=== PATIENT | female | born 1980 | race Caucasian/White ===

== ENCOUNTER 2016-06-26 20:52 | Emergency (ER) | payer MEDICAID, OTHER ==
[~2016-06-26] VITALS: Ht 170.2 cm; Wt 72.6 kg
--- NOTE | 2016-06-26 20:54 | NUR ---
Patient being evaluated by physician.
[2016-06-26 20:58] VITALS: BP 119/62
[2016-06-26] MEDS ORDERED: ONDANSETRON 4 MG ODT PO ONE (21:00)
[2016-06-26] MEDS ORDERED: DICYCLOMINE HCL LIQUID 20 MG, ALUMINUM HYD/MAG/SIMETHICONE 30 ML, LIDOCAINE VISCOUS 2% ... PO ONE ×3 (21:00)
--- NOTE | 2016-06-26 21:00 | NUR ---
BIBA BLS TO ER OF2
[2016-06-26] MEDS ORDERED: LORazepam 1 MG TAB PO ONE (21:05)
--- NOTE | 2016-06-26 21:19 | NUR ---
MOVED TO ER BED 5
[2016-06-26 21:46] LABS: HEMATOCRIT 30.2 % (36-48); HEMOGLOBIN 8.7 g/dL (12.0-16.0); MEAN CORPUSCULAR HEMOGLOBIN 16 pg (27-31); MEAN CORPUSCULAR HGB CONC 29 g/dL (33-37); MEAN CORPUSCULAR VOLUME 57 fL (80-94); PLATELET COUNT (AUTO) 297 K/uL (140-450); RED BLOOD CELL COUNT(AUTO) 5.29 MIL/uL (4.20-5.40); RED CELL DISTRIBUTION WIDTH 18.7 % (11.6-13.7); WHITE BLOOD COUNT (AUTO) 10.1 K/uL (4.8-10.8)
[2016-06-26 22:02] LABS: ANION GAP 18.1 (8-16); CALCIUM 9.4 mg/dL (8.5-10.1); CARBON DIOXIDE 23.3 mmol/L (21-32); CREATININE 0.9 mg/dL (0.6-1.3); POTASSIUM 3.4 mmol/L (3.5-5.1)
[2016-06-26 22:03] LABS: LYMPHOCYTES % (MANUAL) 13 % (20-46); MONOCYTES % (MANUAL) 5 % (5-12); NEUTROPHILS % (MANUAL) 82 (43-65); PLATELET ESTIMATE ADEQUATE
[2016-06-26 22:04] LABS: HYPOCHROMASIA 2+; POIKILOCYTOSIS 1+
[2016-06-26 22:09] LABS: ALBUMIN 4.6 g/dL (3.4-5.0); TOTAL BILIRUBIN 0.6 mg/dL (0.0-1.0); TOTAL PROTEIN, SERUM 8.6 g/dL (6.4-8.2)
--- NOTE | 2016-06-26 22:33 | NUR ---
PT REFUSING TO GIVE URINE SAMPLE AT THIS TIME
--- NOTE | 2016-06-26 22:35 | NUR ---
PATIENT PRESENTS TO ED WITH ABD PAIN . PT STATES SHE HAS HAD THE PAIN CONSTANTLY SINCE THIS MORNING . DENIES DIARRHEA; SKIN IS PINK/WARM/DRY; AAOX4 WITH EVEN AND STEADY GAIT; LUNGS CLEAR BL; HR EVEN AND REGULAR; PT DENIES ANY FEVER, CP, SOB, OR COUGH AT THIS TIME; PATIENT STATES PAIN OF 10/10 AT THIS TIME; VSS; PATIENT POSITIONED FOR COMFORT; HOB ELEVATED; BEDRAILS UP X2; BED DOWN. ER MD MADE AWARE OF PT STATUS.
[2016-06-26 23:55] VITALS: BP 119/62
--- NOTE | 2016-06-26 23:55 | NUR ---
Patient discharged with v/s stable. Written and verbal after care instructions given and explained. Patient alert, oriented and verbalized understanding of instructions. Ambulatory with steady gait. All questions addressed prior to discharge. ID band removed. Patient advised to follow up with PMD. Rx of PROTONIX AND ZOFRAN given. Patient educated on indication of medication including possible reaction and side effects. Opportunity to ask questions provided and answered.
== END 2016-06-26 23:55 | disposition home or self-care (01) ==
LOC: MED 20:52
DX: D64.9 Anemia, unspecified (principal); R10.9 Unspecified abdominal pain
CPT/HCPCS: 74176; 76705; 80053; 83690; 84703; 85025; 99285; Q0092; S0119

== ENCOUNTER 2019-09-29 20:51 | Emergency (ER) | payer MEDICAID ==
[~2019-09-29] VITALS: Ht 167.6 cm; Wt 90.3 kg
[2019-09-29 21:38] VITALS: BP 135/85
--- NOTE | 2019-09-29 22:42 | NUR ---
PT AMBULATED TO ER BED 6
--- NOTE | 2019-09-29 23:14 | NUR ---
PT C/O MIDSTERNAL CHEST PAIN, PRESSURE TYPE PAIN, X 2 DAYS. PAIN IS NONRADIATING, DENIES N/T. PT HAS BEEN HAVING SOME SOB WITH A NONPRODUCTIVE COUGH FOR 2-3 DAYS. PT HAS BEEN AFEBRILE. BILATERAL LUNG SOUNDS CLEAR. BED IN LOWEST POSITION AND SIDERAIL UP X 1 NKA NO MED HX
--- NOTE | 2019-09-29 23:52 | NUR ---
ERMD BEDSIDE EVALUATING PT
[2019-09-30] VITALS: BP 135/85
--- NOTE | 2019-09-30 00:04 | NUR ---
Patient discharged with v/s stable. Written and verbal after care instructions given and explained. Patient verbalized understanding. Ambulatory with steady gait. All questions addressed prior to discharge. Advised to follow up with PMD.
== END 2019-09-30 00:26 | disposition home or self-care (01) ==
LOC: MED 20:51
DX: J20.9 Acute bronchitis, unspecified (principal); F17.210 Nicotine dependence, cigarettes, uncomplicated; Z71.6 Tobacco abuse counseling
CPT/HCPCS: 71045; 93005; 99283; Q0092

== ENCOUNTER 2021-05-29 19:13 | Observation (INO) | payer OTHER, SELFPAY ==
[~2021-05-29] VITALS: Ht 170.2 cm; Wt 87.1 kg
[2021-05-29 19:27] VITALS: BP 140/89
--- NOTE | 2021-05-29 19:34 | NUR ---
PT TAKEN TO BED 1
[2021-05-29 20:11] LABS: BASOPHILS % (AUTO) 0.7 % (0.0-2.0); EOSINOPHILS # (AUTO) 0.2 K/uL (0-0.4); EOSINOPHILS % (AUTO) 2.7 % (0.0-4.0); HEMATOCRIT 24.6 % (36-48); HEMOGLOBIN 7.1 g/dL (12.0-16.0); LYMPHOCYTES # (AUTO) 2.4 K/uL (2.5-16.5); LYMPHOCYTES % (AUTO) 35.6 % (20.5-51.1); MEAN CORPUSCULAR HEMOGLOBIN 16 pg (27-31); MEAN CORPUSCULAR HGB CONC 29 g/dL (33-37); MEAN CORPUSCULAR VOLUME 56.1 fL (80-94); MONOCYTES # (AUTO) 0.3 K/uL (0.8-1.0); MONOCYTES % (AUTO) 5.2 % (1.7-9.3); NEUTROPHILS # (AUTO) 3.8 K/uL (1.8-7.7); NEUTROPHILS % (AUTO) 55.8 % (42.2-75.2); PLATELET COUNT (AUTO) 310 K/uL (140-450); RED BLOOD CELL COUNT(AUTO) 4.38 MIL/uL (4.20-5.40); RED CELL DISTRIBUTION WIDTH 19.4 % (11.6-13.7); WHITE BLOOD COUNT (AUTO) 6.7 K/uL (4.8-10.8)
--- NOTE | 2021-05-29 21:53 | NUR ---
ermd at bedside to explain about admission to the hospital
[2021-05-29] MEDS ORDERED: MORPHINE SULFATE 4 MG/ML SYR IVP PRN (22:35)
[2021-05-29] MEDS ORDERED: ACETAMINOPHEN 325 MG TAB PO PRN (22:35)
[2021-05-29] MEDS ORDERED: IBUPROFEN 400 MG TAB PO PRN (22:35)
[2021-05-29] MEDS ORDERED: MAG SULF 2000 MG/WATER PREMIX 50 ML IV PRN (22:35)
[2021-05-29] MEDS ORDERED: ZOLPIDEM 5 MG TAB PO PRN (22:35)
[2021-05-29] MEDS ORDERED: KCL 20 MEQ/WATER INJ PREMIX 200 ML IV PRN (22:35)
[2021-05-29] MEDS ORDERED: MAGNESIUM OXIDE 400 MG TAB PO PRN (22:35)
[2021-05-29] MEDS ORDERED: POTASSIUM CHLORIDE 10 MEQ TABER PO PRN (22:35)
[2021-05-29] MEDS ORDERED: ONDANSETRON 4 MG/2 ML VIAL IVP PRN (22:35)
--- NOTE | 2021-05-30 00:12 | NUR ---
IV removed, catheter intact and site benign. Applied folded 4x4 gauze and tape to stop bleeding.
--- NOTE | 2021-05-30 00:14 | NUR ---
Patient does not wish to proceed with medical care recommended by Iesha BAUER. Patient given information related to possible complications, up to and including , which could occur as a result of leaving hospital at this time. Patient verbalizes understanding of risks involved leaving against medical advice. Patient has signed AMA form.
[2021-05-30 00:16] VITALS: BP 114/70
--- NOTE | 2021-05-30 00:36 | NUR ---
INFORMED MD ABOUT PATIENT LEAVING AMA.
[2021-05-30] MEDS ORDERED: medroxyPROGESTERone 10 MG TAB PO SCH (09:00)
== END 2021-05-30 00:14 | disposition left against medical advice (07) ==
LOC: MED 19:13 → MTU 22:32 → UNDOADMIN 22:32
PROVIDERS: ADMIT Hospitalist; ATTEND Hospitalist
DX: N93.8 Other specified abnormal uterine and vaginal bleeding (principal); Z20.822 Contact with and (suspected) exposure to COVID-19; D50.0 Iron deficiency anemia secondary to blood loss (chronic)
CPT/HCPCS: 36415; 76830; 84702; 85025; 86886; 86900; 86901; 87426; 99284; G0378; Q0092

== ENCOUNTER 2023-08-03 15:00 | Emergency (ER) | payer MEDICAID, OTHER ==
[~2023-08-03] VITALS: Ht 170.2 cm; Wt 103.9 kg
[2023-08-03 15:05] VITALS: BP 108/56; PULSE 105; RESP 18; TEMP 96.9; O2SAT 100
[2023-08-03] MEDS: NACL 0.9% 1,000 ML IV ONE (15:33)
[2023-08-03 15:40] LABS: BASOPHILS % (AUTO) 0.5 % (0.0-2.0); EOSINOPHILS # (AUTO) 0.2 K/uL (0-0.4); EOSINOPHILS % (AUTO) 3.1 % (0.0-4.0); HEMATOCRIT 21.6 % (36-48); LYMPHOCYTES # (AUTO) 1.9 K/uL (2.5-16.5); LYMPHOCYTES % (AUTO) 29.2 % (20.5-51.1); MEAN CORPUSCULAR HEMOGLOBIN 15 pg (27-31); MEAN CORPUSCULAR HGB CONC 29 g/dL (33-37); MEAN CORPUSCULAR VOLUME 52.1 fL (80-94); MONOCYTES # (AUTO) 0.4 K/uL (0.8-1.0); MONOCYTES % (AUTO) 6.6 % (1.7-9.3); NEUTROPHILS # (AUTO) 3.9 K/uL (1.8-7.7); NEUTROPHILS % (AUTO) 60.6 % (42.2-75.2); PLATELET COUNT (AUTO) 302 K/uL (140-450); RED BLOOD CELL COUNT(AUTO) 4.15 MIL/uL (4.20-5.40); RED CELL DISTRIBUTION WIDTH 21.5 % (11.6-13.7); WHITE BLOOD COUNT (AUTO) 6.5 K/uL (4.8-10.8)
[2023-08-03 15:43] LABS: HEMOGLOBIN 6.2 g/dL (12.0-16.0)
[2023-08-03] MEDS: KETOROLAC 30 MG/ML VIAL IVP ONE (16:01)
[2023-08-03 16:05] LABS: APPEARANCE,URINE CLEAR (CLEAR); BILIRUBIN,URINE 1+ (NEGATIVE); BLOOD, URINE 3+ (NEGATIVE); COLOR,URINE YELLOW (YELLOW); LEUKOCYTE ESTERASE ,URINE 1+ (NEGATIVE); NITRITE, URINE POSITIVE (NEGATIVE); PH,URINE 7.5 (5.0-9.0); PROTEIN,URINE 1+ (NEGATIVE); UGLUCOSE NEGATIVE (NEGATIVE)
[2023-08-03] MEDS ORDERED: CIPR500T4 PO (16:33)
[2023-08-03] MEDS ORDERED: MEDR10TA PO (16:33)
[2023-08-03] MEDS ORDERED: IBUP-2213 PO (16:33)
[2023-08-03 16:37] LABS: BACTERIA,URINE >30 (MANY) /HPF (None Seen); ICTOTEST NEGATIVE (NEGATIVE); MUCUS,URINE None Seen /LPF (None Seen); RBC,URINE 11-20 (MOD) /HPF (0-5); SQUAMOUS EPITHELIAL CELL,UR 0-3 (FEW) /LPF (0-3 (FEW))
[2023-08-03 16:38] LABS: TRICHOMONAS,URINE None Seen /HPF (None Seen); WHITE BLOOD CELL CASTS,URINE None Seen /LPF (None Seen); YEAST,URINE None Seen /HPF (None Seen)
[2023-08-03 16:43] VITALS: BP 107/47; PULSE 85; RESP 14; TEMP 97.7; O2SAT 98
== END 2023-08-03 16:45 | disposition home or self-care (01) ==
LOC: MED 15:00
DX: N39.0 Urinary tract infection, site not specified (principal); N93.8 Other specified abnormal uterine and vaginal bleeding; D64.9 Anemia, unspecified; Z79.899 Other long term (current) drug therapy
CPT/HCPCS: 36415; 81001; 81025; 85025; 87086; 87186; 96361; 96374; 99283; J1885; J7030

== ENCOUNTER 2023-08-17 16:29 | Emergency (ER) | payer MEDICAID ==
[~2023-08-17] VITALS: Ht 167.6 cm; Wt 104.3 kg
[~2023-08-17 16:29] MED LIST: CIPR500T4 PO; IBUP-2213 PO; MEDR10TA PO
[2023-08-17 17:06] VITALS: BP 121/73; PULSE 95; RESP 18; TEMP 98.2; O2SAT 100
[2023-08-17] MEDS: NACL 0.9% 1,000 ML IV ONE (18:55)
[2023-08-17 18:58] LABS: BASOPHILS # (AUTO) 0.1 K/uL (0.00-0.22); BASOPHILS % (AUTO) 0.9 % (0.0-2.0); EOSINOPHILS # (AUTO) 0.2 K/uL (0-0.4); EOSINOPHILS % (AUTO) 3.1 % (0.0-4.0); HEMATOCRIT 22.4 % (36-48); LYMPHOCYTES % (AUTO) 32.3 % (20.5-51.1); MEAN CORPUSCULAR HEMOGLOBIN 14 pg (27-31); MEAN CORPUSCULAR HGB CONC 27 g/dL (33-37); MEAN CORPUSCULAR VOLUME 51.3 fL (80-94); MONOCYTES # (AUTO) 0.3 K/uL (0.8-1.0); MONOCYTES % (AUTO) 4.3 % (1.7-9.3); NEUTROPHILS # (AUTO) 3.8 K/uL (1.8-7.7); NEUTROPHILS % (AUTO) 59.4 % (42.2-75.2); PLATELET COUNT (AUTO) 301 K/uL (140-450); RED BLOOD CELL COUNT(AUTO) 4.38 MIL/uL (4.20-5.40); RED CELL DISTRIBUTION WIDTH 20.7 % (11.6-13.7); WHITE BLOOD COUNT (AUTO) 6.3 K/uL (4.8-10.8)
[2023-08-17 19:09] LABS: HEMOGLOBIN 6.1 g/dL (12.0-16.0)
[2023-08-17 19:16] LABS: BILIRUBIN,URINE NEGATIVE (NEGATIVE); BLOOD, URINE 3+ (NEGATIVE); LEUKOCYTE ESTERASE ,URINE 2+ (NEGATIVE); NITRITE, URINE POSITIVE (NEGATIVE); PROTEIN,URINE 3+ (NEGATIVE); UGLUCOSE NEGATIVE (NEGATIVE)
[2023-08-17 19:17] LABS: APPEARANCE,URINE SLIGHTLY HAZY (CLEAR); COLOR,URINE RED (YELLOW)
[2023-08-17 19:20] LABS: RBC,URINE 50-80 /HPF (0-5)
[2023-08-17 19:23] LABS: BACTERIA,URINE 2+ /HPF (None Seen); MUCUS,URINE None Seen /LPF (None Seen); SQUAMOUS EPITHELIAL CELL,UR 0-3 (FEW) /LPF (0-3 (FEW))
[2023-08-17 19:26] LABS: ANION GAP 13.1 (8-16); CALCIUM 8.7 mg/dL (8.5-10.1); CARBON DIOXIDE 24.9 mmol/L (21-32); CREATININE 0.8 mg/dL (0.6-1.3); TOTAL BILIRUBIN 0.4 mg/dL (0.0-1.0); TOTAL PROTEIN, SERUM 7.7 g/dL (6.4-8.2)
[2023-08-17] MEDS ORDERED: ONDANSETRON 4 MG/2 ML VIAL ONE (19:37)
[2023-08-17] MEDS ORDERED: MORPHINE SULFATE 4 MG/ML SYR ONE (19:38)
[2023-08-17] MEDS: ONDANSETRON 4 MG/2 ML VIAL IVP ONE (19:42)
[2023-08-17] MEDS: MORPHINE SULFATE 4 MG/ML SYR IVP ONE (19:42)
[2023-08-17 21:30] VITALS: TEMP 97.7
[2023-08-17] MEDS ORDERED: MEDR10TA PO (22:19)
[2023-08-17] MEDS ORDERED: SULF-59 PO (22:19)
[2023-08-17] MEDS ORDERED: IBUP-2213 PO (22:19)
[2023-08-17] MEDS ORDERED: FERR325E14 PO (22:19)
[2023-08-17] MEDS: ACETAMINOPHEN EXTRA STRENGTH 500 MG TAB PO ONE (23:29)
[2023-08-18 00:32] VITALS: BP 130/75; PULSE 96; RESP 14; O2SAT 99
== END 2023-08-18 00:32 | disposition home or self-care (01) ==
LOC: MED 16:29
DX: N93.9 Abnormal uterine and vaginal bleeding, unspecified (principal); N39.0 Urinary tract infection, site not specified; Z79.1 Long term (current) use of non-steroidal anti-inflammatories (NSAID); Z79.2 Long term (current) use of antibiotics; Z79.899 Other long term (current) drug therapy
CPT/HCPCS: 36415; 36430; 74177; 76705; 76856; 80053; 81001; 81025; 83690; 85025; 86886; 86900; 86901; 86920; 87086; 96360; 99291; J7030; P9016; Q9967; J2270; J2405

== ENCOUNTER 2023-12-10 22:53 | Emergency (ER) | payer MEDICAID ==
[~2023-12-10] VITALS: Ht 170.2 cm; Wt 106.1 kg
[~2023-12-10 22:53] MED LIST changes: +FERR325E14 PO; +SULF-59 PO
[2023-12-10 23:07] VITALS: BP 154/79; PULSE 89; RESP 18; TEMP 98; O2SAT 99
[2023-12-11] MEDS: KETOROLAC 30 MG/ML VIAL IM ONE
[2023-12-11] MEDS ORDERED: NAPR-337 PO (00:55)
[2023-12-11 01:09] VITALS: BP 142/79; PULSE 89; RESP 18; TEMP 98; O2SAT 99
== END 2023-12-11 01:09 | disposition home or self-care (01) ==
LOC: MED 22:53
DX: S80.01XA Contusion of right knee, initial encounter (principal); S60.222A Contusion of left hand, initial encounter; Z79.899 Other long term (current) drug therapy; W05.1XXA Fall from non-moving nonmotorized scooter, initial encounter; Y93.89 Activity, other specified; Y92.410 Unspecified street and highway as the place of occurrence of the external cause; Y99.8 Other external cause status
CPT/HCPCS: 73562; 81025; 96372; 99283; J1885